=== PATIENT | female | born 2000 | race Caucasian/White ===

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

== ENCOUNTER 2022-03-30 10:54 | Emergency (ER) | payer OTHER, SELFPAY ==
[2022-03-30 11:07] VITALS: BP 116/88; PULSE 107; RESP 16; TEMP 37.3; O2SAT 100
--- NOTE | 2022-03-30 12:10 | ED.URI ---
HPI - URI/Sore Throat General Chief Complaint: Upper Respiratory Infection Stated Complaint: Congestion,Cough,Headache Source: patient Mode of arrival: ambulatory History of Present Illness HPI Narrative: This is a 21-year-old female who presented to our urgent care with complaints of a fever of 102 runny nose headache nausea vomiting coughing with productive yellow sputum shortness of breath she does have a history of asthma. Patient has been taking Tylenol with NyQuil DayQuil at home. The patient denies CP, palpitation, extremity numbness, lightheadedness, dizziness, constipation, and diarrhea. Patient also notes that she has tenderness to her lower back after vomiting. Related Data Home Medications Medication Instructions Recorded Confirmed medroxyprogesterone 150 mg/mL 150 mg IM DAILY 03/30/22 03/30/22 intramuscular suspension pantoprazole 40 mg tablet,delayed 40 mg PO DAILY 03/30/22 03/30/22 release Allergies Allergy/AdvReac Type Severity Reaction Status Date / Time No Known Allergies Allergy Verified 03/30/22 11:22 Review of Systems Review of Systems: A 14 organ system Review of Systems was performed and pertinent positives included in the HPI, otherwise remaining ROS is negative. [facility] Past Medical History Medical History (Updated 03/30/22 @ 12:05 by GREG Cobb) Irritable bowel syndrome Surgical History Surgical History (Updated 09/21/19 @ 16:19 by Lina Leal MD) History of appendectomy Social History Social History (Updated 09/21/19 @ 16:19 by Lina Leal MD) Smoking status: Never smoker Alcohol intake: never Substance use: never Gender identity (if verbalized by the patient): Female Exam Narrative: GENERAL: This is a well-nourished, well-developed patient, in no apparent distress. HEAD: normocephalic, atraumatic. EYES: PERRL. Sclera clear/white. Vision is grossly intact. EARS: External ears normal, auditory canals clear and without drainage, TMs normal without perforation. Hearing grossly intact. NOSE: External nose normal with no obvious nasal discharge, nares without redness, no rhinorrhea. THROAT: Mucous membranes moist, posterior pharynx clear. NECK: Neck supple, non-tender without lymphadenopathy, masses or thyromegaly. CARDIOVASCULAR: Regular rate and rhythm without murmurs, gallops, or rubs. RESPIRATORY: Clear to auscultation. Breath sounds equal bilaterally. No wheezes, rales, or rhonchi. GASTROINTESTINAL: Abdomen soft, non-tender, nondistended. Bowel sounds are active. No hepato-splenomegaly, or palpable masses. No guarding. SKIN: warm, intact with no suspicious lesions or rash, good texture and turgor. NEURO: awake, alert, and oriented to person, place and time. There were no obvious focal neurologic abnormalities. EXTREMITIES: Normal range of motion. No edema. No calf tenderness. Course Course Emergency Course: Patient will discharge with Augmentin to further treatment in pharyngitis she will also be given Claritin along with guaifenesin, Tessalon Perles, Flexeril and Claritin. Strep test when available Level of Care: Express Care Visit Vital Signs Vital signs: Vital Signs Temperature 99.1 F 03/30/22 11:07 Pulse Rate 107 H 03/30/22 11:07 Respiratory Rate 16 03/30/22 11:07 Blood Pressure 116/88 03/30/22 11:07 Pulse Oximetry 100 03/30/22 11:07 Oxygen Delivery Room Air 03/30/22 11:07 Temperature 99.1 F 03/30/22 11:07 Pulse Rate 107 H 03/30/22 11:07 Respiratory Rate 16 03/30/22 11:07 Blood Pressure 116/88 03/30/22 11:07 Pulse Oximetry 100 03/30/22 11:07 Oxygen Delivery Room Air 03/30/22 11:07 MDM - URI/Sore Throat Differential Diagnosis Differential diagnosis: Likely upper respiratory infection, viral infection, bronchitis and pharyngitis Discharge Plan Discharge Clinical Impression: Pharyngitis Patient Disposition: Home, Self-Care Condition: Stable Instructions: Ant
== END 2022-03-30 12:14 | disposition home or self-care (01) ==
PROVIDERS: Emergency Provider Nurse Practitioner; PCP Physician Assistant
DX: J02.9 Acute pharyngitis, unspecified (principal); J45.909 Unspecified asthma, uncomplicated
CPT/HCPCS: 99213; G0463